=== PATIENT | male | born 1965 | race Hispanic/Latino ===

== ENCOUNTER 2018-12-20 09:38 | Day surgery (SDC) | payer SELFPAY ==
--- NOTE | 2018-12-20 10:39 | HP ---
HISTORY OF PRESENT ILLNESS: Mr. Blanco is a 53-year-old man, presented to emergency department in [place]. The patient complained of insidious onset epigastric right upper quadrant abdominal pain, which started approximately 2000 hours last night. This was associated with one bout of nonbilious emesis. Pain was described as burning and occasionally sharp without any radiation. The patient denies any fevers or chills. He had dinner yesterday evening, consisting of grilled shrimp and vegetables. He has never experienced similar pain in the past. PAST MEDICAL HISTORY: He denies any previous medical problems. PAST SURGICAL HISTORY: Pertinent for some foot surgery many years ago. He denies any abdominal or chest surgeries. SOCIAL HISTORY: He is , although his lives in [place]. He is employed as a construction laborer. He denies any cigarette smoking, ethanol, or illicit drug abuse. PREHOSPITAL MEDICATIONS: None. ALLERGIES: THE PATIENT DENIES ANY KNOWN DRUG ALLERGIES. REVIEW OF SYSTEMS: Ten-point review of systems essentially unremarkable except as stated in past medical history and chief complaint. PHYSICAL EXAMINATION: GENERAL: This reveals a 53-year-old, normally developed man, who is otherwise coherent and interactive and appears stated age. The patient is alert and oriented x3, appears to be in moderate acute distress secondary to right upper quadrant abdominal pain. VITAL SIGNS: Today include blood pressure 124/66, pulse 66, respiratory rate 17, temperature is 98.3 degrees Fahrenheit, and oxygen saturations 97% on room air. HEENT: Reveals normocephalic and atraumatic. Pupils are equal, round, and reactive to light and accommodation. He has no sclerae icterus present. Oral mucosa is pink and moist, no lesions are noted. NECK: Supple. No palpable lymphadenopathy or thyromegaly present. HEART: Reveals regular rate and rhythm. No murmurs or gallops auscultated. LUNGS: Clear to auscultation bilaterally. Breathing, regular and nonlabored. ABDOMEN: Soft with right upper quadrant tenderness to palpation. Liver and spleen are nonpalpable below costal margin. EXTREMITIES: Reveal 2+ radial and pedal pulses bilaterally. No ankle edema is present. NEUROLOGIC: Reveals no focal deficits present. LABORATORY FINDINGS: Today include CBC with 8200 white blood cells, hemoglobin and hematocrit are 14.3 and 44.1 respectively. Platelet count is 213,000. Metabolic profile; sodium 138, potassium 3.9, chloride is 103, bicarb is 26, BUN 20, creatinine 0.82, glucose 163, AST and ALT are normal at 18 and 25 respectively. Serum lipase is also normal at 15. Total bilirubin is normal at 0.5 mg/dL. I have personally reviewed the abdominal ultrasound, which is remarkable for multiple intraluminal gallstones. Gallbladder wall is thickened. Common bile duct is normal for this patient's age at 6 mm in diameter. IMPRESSION: Acute cholecystitis with cholelithiasis. PLAN: Laparoscopic cholecystectomy. I have advised the patient of the above findings and plan. I have also advised him of the risks and benefits of the proposed surgery to include, but not limited to bleeding, infection, injury to bile duct or surrounding structures. The patient indicates understanding of the information I have given him today. I answered his questions. The patient has granted consent for this admission and surgical intervention. Job ID: [id number]
[2018-12-20] MEDS ORDERED: Sodium Chloride 0.9% 100 ML ONE (12:42)
[2018-12-20] MEDS ORDERED: cefOXitin 2 GM VIAL ONE (12:42)
[2018-12-20] MEDS ORDERED: Midazolam HCl 2 mg/2 ml Vial ONE (13:49)
[2018-12-20] MEDS ORDERED: Fentanyl 100 MCG/2 ML VIAL ONE ×2 (13:49→16:20)
[2018-12-20] MEDS ORDERED: Ondansetron PF 4 MG/2 ML Vial ONE (15:15)
[2018-12-20] MEDS ORDERED: Dexamethasone 20 MG/5 ML VIAL ONE (15:15)
[2018-12-20] MEDS ORDERED: Lidocaine 1% PF 5 ML VIAL ONE (15:15)
[2018-12-20] MEDS ORDERED: PROPOFOL 200 MG/20 ML VIAL ONE (15:15)
[2018-12-20] MEDS ORDERED: Glycopyrrolate 0.2 MG/ML 5 ML SYRINGE ONE (15:15)
[2018-12-20] MEDS ORDERED: Rocuronium Bromide 10 MG/ML (10ML VIAL) ONE (15:15)
[2018-12-20] MEDS ORDERED: Non-Formulary Medication 1 EACH PO PRN (16:39)
[2018-12-20] MEDS ORDERED: Morphine Sulfate 2 MG/ML SYRINGE SLOW IVP PRN (16:39)
[2018-12-20] MEDS ORDERED: Ondansetron HCl/PF 4 MG/2 ML Vial IVP PRN (16:39)
[2018-12-20] MEDS ORDERED: Promethazine HCl 25 MG/ML VIAL IM/IV PRN (16:39)
[2018-12-20] MEDS ORDERED: Morphine 4 MG/ML VIAL SLOW IVP PRN (16:39)
--- NOTE | 2018-12-20 22:55 | OP ---
DATE OF PROCEDURE: 12/20/2018 PREOPERATIVE DIAGNOSIS: Acute cholecystitis with cholelithiasis. POSTOPERATIVE DIAGNOSIS: Acute cholecystitis with cholelithiasis. OPERATION PERFORMED: Laparoscopic cholecystectomy. ANESTHESIA: General endotracheal. ESTIMATED BLOOD LOSS: 20 mL. FLUIDS GIVEN: 700 mL crystalloids. COUNTS: Sponge and instrument counts were verified as correct x2. COMPLICATIONS: None apparent to operation. INDICATIONS FOR OPERATION: A 53-year-old man, presented with insidious onset epigastric right upper quadrant abdominal pain, which started yesterday after dinner. Clinical radiographic examination was consistent with acute cholecystitis, cholelithiasis for which the patient was brought to the operating room today for cholecystectomy. Findings are consistent with distended gallbladder in usual anatomic location partially encased by omental adhesions. DESCRIPTION OF PROCEDURE: Informed consent obtained from the patient. He was brought to the operating room and placed in supine position. Following general anesthesia, abdomen was sterilely prepped and draped in usual fashion. The skin below the umbilicus was infiltrated 0.25% Marcaine with epinephrine. A small curvilinear infraumbilical incision was made using #11 scalpel. Umbilical stalk grasped with Ramesh and elevated. Veress needle inserted through incision, placed in the peritoneal cavity through which the abdomen was insufflated with 3 L of CO2 gas. Intraabdominal pressure noted at 2 mmHg. Following abdominal insufflation, Veress needle was removed and replaced with a 5 mm trocar introduced using a Visiport under laparoscopy. Laparoscopy confirmed proper placement of the port, no injuries to underlying structures. Additional laparoscopy reveals gallbladder in the usual anatomic location, partially encased by omental adhesions. Under direct laparoscopy, a 12 mm epigastric and two 5 mm right lateral subcostal ports were placed after the overlying skin were infiltrated with 0.25% Marcaine with epinephrine and appropriate incision was made. The patient was placed in a reverse Trendelenburg position, rotated to his left. I introduced a [place] dissector with cautery, using this to take down omental adhesions. I then introduced a Prestige grasper through the right lateral subcostal port, attempted to grasp the fundus of the gallbladder, which was markedly distended and taut. I decided to decompress the gallbladder at that juncture. Using an Endo suction catheter with cautery, cholecystotomy was made at the fundus of the gallbladder, evacuated excess bile. I then applied a prestige grasper, grasping the fundus, which was elevated cephalad. A second Prestige grasper was introduced through the right medial subcostal port grasping the Rambo pouch, which was retracted laterally. The cystic duct was carefully dissected free from the surrounding structures at the triangle of Calot. The duct was divided between clips. Two clips were applied proximally and one clip at the junction of the gallbladder and cystic duct. The cystic artery was dissected free from surrounding structures and divided between clips in a similar fashion. The gallbladder itself was removed from the liver bed using cautery. The gallbladder was delivered off the abdominal cavity using EndoCatch. Operative site was inspected. Minor oozing in the gallbladder fossa was controlled readily using 1 x 2 inch piece of fibrillar. Finding no other pathology, laparoscopy was terminated. Fascia of the epigastric port was closed using 0 Vicryl suture and Endoclosure device on the laparoscopy. The abdomen was desufflated. All ports and instruments removed and accounted for. Skin incisions were closed using 4-0 Monocryl suture in subcuticular fashion. Dermabond was applied over incisional closure. The patient tolerated the operation without any apparent complication and was returned to recovery room in satisfactory condition. Job ID: [id number]
== END 2018-12-20 19:30 | disposition home or self-care (01) ==
LOC: ERS 09:38 → SDC/OP 11:41
PROVIDERS: ATTEND Surgery
PROC: 0FT44ZZ Resection of Gallbladder, Percutaneous Endoscopic Approach (ICD-10-PCS; principal; 2018-12-20)
DX: K80.12 Calculus of gallbladder with acute and chronic cholecystitis without obstruction (principal)
CPT/HCPCS: 88304; J0694; J2250; J3010; J7050